=== PATIENT | male | born 1965 | race Caucasian/White ===

== ENCOUNTER 2018-12-15 11:00 | Inpatient (IN) | payer OTHER ==
--- NOTE | 2018-12-15 13:48 | HP ---
CIWA Score Nausea/Vomitin Muscle Tremors: 3 Anxiety: 2 Agitation: 2 Paroxysmal Sweats: 1-Minimal Palms Moist Orientation: 0-Oriented Tacttile Disturbances: 1-Very Mild Itch/Numbness Auditory Disturbances: 1-Very Mild Visual Disturbances: 0-None Headache: 2-Mild CIWA-Ar Total Score: 15 - Admission Criteria OASAS Guidelines: Admission for Medically Managed Detox: Requires at least one of the followin. CIWA greater than 12 2. Seizures within the past 24 hours 3. Delirium tremens within the past 24 hours 4. Hallucinations within the past 24 hours 5. Acute intervention needed for co occurring medical disorder 6. Acute intervention needed for co occurring psychiatric disorder 7. Severe withdrawal that cannot be handled at a lower level of care (continued vomiting, continued diarrhea, abnormal vital signs) requiring intravenous medication and/or fluids 8. Patient presents the following: CIWA greater than 12 Admission Criteria Met: Admission criteria met Admission ROS BHS - HPI Chief Complaint: i need help to stop drinking alcohol Allergies/Adverse Reactions: Allergies Allergy/AdvReac Type Severity Reaction Status Date / Time No Known Allergies Allergy Verified 12/15/18 13:37 History of Present Illness: this 53 years old male with alcohol dependence,seeking detox,withdrawal symptom, need help to stop drinking, history of syncope hiv since 1997 nicotine dependence 1 pack /day weight loss depression no significant period of sobriety last detox 1989 at [facility] plan for out patient program after detox Exam Limitations: No Limitations - Ebola screening Have you traveled outside of the country in the last 21 days: No Have you had contact with anyone from an Ebola affected area: No Have you been sick,other than usual withdrawal symptoms: No - Review of Systems Constitutional: Loss of Appetite, Malaise, Night Sweats, Changes in sleep, Weakness, Unintentional Wgt. Loss EENT: reports: Nose Congestion Respiratory: reports: No Symptoms reported Cardiac: reports: No Symptoms Reported GI: reports: Nausea, Poor Appetite, Indigestion, Abdominal cramping : reports: No Symptoms Reported Musculoskeletal: reports: Back Pain, Muscle Pain Integumentary: reports: Dryness Neuro: reports: Headache, Tremors, Other (history of craniotomy post tauama in 1997) Endocrine: reports: No Symptoms Reported Hematology: reports: No Symptoms Reported, Other (hiv) Psychiatric: reports: No Sypmtoms Reported, Judgement Intact, Mood/Affect Appropiate, Orientated x3, Depressed Other Systems: Reviewed and Negative Patient History - Patient Medical History Hx Anemia: No Hx Asthma: No Hx Chronic Obstructive Pulmonary Disease (COPD): No Hx Cancer: No Hx Cardiac Disorders: No Hx Congestive Heart Failure: No Hx Hypertension: No Hx Hypercholesterolemia: No Hx Pacemaker: No HX Cerebrovascular Accident: No Hx Seizures: No Hx Dementia: No Hx Diabetes: No Hx Gastrointestinal Disorders: No Hx Liver Disease: No Hx Genitourinary Disorders: No Hx Sexually Transmitted Disorders: No Hx Renal Disease (ESRD): No Hx Thyroid Disease: No Hx Human Immunodeficiency Virus (HIV): Yes (since 1997) Hx Hepatitis C: No Hx Depression: Yes (no med) Hx Suicide Attempt: No Hx Bipolar Disorder: No Hx Schizophrenia: No Other Medical History: no suicidal,no homicidal - Patient Surgical History Past Surgical History: Yes Hx Neurologic Surgery: Yes (craniotomy in 1997 post trauma) - PPD History Previous Implant?: Yes Documented Results: Negative w/o proof Implanted On Prior R Admission?: No PPD to be Administered?: Yes - Smoking Cessation Smoking history: Current every day smoker Have you smoked in the past 12 months: Yes Aproximately how many cigarettes per day: 20 Cigars Per Day: 0 Hx Chewing Tobacco Use: No Initiated information on smoking cessation: Yes 'Breaking Loose' booklet given: 12/15/18 - Substance & Tx. History Hx Alcohol Use: Yes Hx Substance Use: No Substance Use Type: Alcohol Hx Substance Use Treatment: Yes ([address] [place] [address]) - Substances Abused Alcohol-beer/scotch Route: Oral Frequency: Daily Amount used: 1 case/1-2 pts. Age of first use: 11 Date of Last Use: 12/15/18 Family Disease History - Family Disease History Family Disease History: Other: Grandparent (alcohol), Father (alcohol) Admission Physical Exam BHS - Vital Signs Vital Signs: Vital Signs - 24 hr 12/15/18 13:21 Temperature 97.2 F L Pulse Rate 128 H Respiratory 20 Rate Blood Pressure 132/104 H - Physical General Appearance: Yes: Moderate Distress, Intoxicated, Tremorous, Irritable, Anxious HEENTM: Yes: Normal ENT Inspection, KRISTIN, Pharynx Normal Respiratory: Yes: Lungs Clear, Normal Breath Sounds, No Respiratory Distress Neck: Yes: Within Normal Limits, Supple, Trachea in good position Breast: Yes: Within Normal Limits Cardiology: Yes: Within Normal Limits, Regular Rhythm, Regular Rate, S1, S2 Abdominal: Yes: Within Normal Limits, Normal Bowel Sounds, Non Tender, Soft Genitourinary: Yes: Within Normal Limits Back: Yes: Muscle Spasm Musculoskeletal: Yes: full range of Motion, Back pain, Muscle Pain Extremities: Yes: Within Normal Limits, Normal Range of Motion, Tremors Neurological: Yes: research physicist II-XII NML intact, Fully Oriented, Alert, Motor Strength 5/5 Integumentary: Yes: Dry Lymphatic: Yes: Within Normal Limits - Diagnostic (1) Alcohol dependence with uncomplicated withdrawal Current Visit: Yes Status: Acute (2) Alcohol dependence with uncomplicated intoxication Current Visit: Yes Status: Acute (3) HIV (human immunodeficiency virus infection) Current Visit: Yes Status: Acute (4) Weight loss Current Visit: Yes Status: Acute (5) History of craniotomy Current Visit: Yes Status: Acute (6) History of head injury Current Visit: Yes Status: Acute (7) Nicotine dependence Current Visit: Yes Status: Acute (8) Depression Current Visit: Yes Status: Acute Cleared for Admission [facility] - Detox or Rehab [facility] Level of Care: Medically Managed Detox Regimen/Protocol: Librium [facility] Breath Alcohol Content Breath Alcohol Content: 0.174 Urine Drug Screen - Results Drug Screen Negative: No Urine Drug Screen Results: THC-Marijuana Inpatient Rehab Admission - Rehab Decision to Admit Inpatient rehab admission?: No
[2018-12-15] MEDS ORDERED: MAGNESIUM CITRATE 300 ML BOTTLE PO PRN (13:59)
[2018-12-15] MEDS ORDERED: guaiFENesin/D-METHORPHAN HB 10 ML UNIT-DOSE CUPS PO PRN (13:59)
[2018-12-15] MEDS ORDERED: chlordiazePOXIDE HCL 25 MG CAPSULE PO PRN (13:59)
[2018-12-15] MEDS ORDERED: MENTHOL/PHENOL 1 EACH UD MM PRN (13:59)
[2018-12-15] MEDS ORDERED: IBUPROFEN 400 MG TABLET (FP) PO PRN (13:59)
[2018-12-15] MEDS ORDERED: MAG HYDROX/AL HYDROX/SIMETH 30 ML UNIT-DOSE CUP PO PRN (13:59)
[2018-12-15] MEDS ORDERED: MAGNESIUM HYDROX 2400MG/30ML ORAL SUSPENSION 30 ML CUP PO PRN (13:59)
[2018-12-15] MEDS ORDERED: P-EPHED 60MG/TRIPROLIDI 2.5MG TABLET PO PRN (13:59)
[2018-12-15] MEDS ORDERED: ACETAMINOPHEN 325 MG TABLET (FP) PO PRN (13:59)
[2018-12-15] MEDS: hydrOXYzine PAMOATE 50 MG CAPSULE (FP) PO PRN ×2 (15:29→22:10)
[2018-12-15] MEDS: NICOTINE 21 MG/24 HOURS TOPICAL PATCH TD SCH (15:36)
[2018-12-15] MEDS: chlordiazePOXIDE HCL 25 MG CAPSULE PO SCH ×2 (17:33→22:09)
[2018-12-15] MEDS: LOPERAMIDE HCL 2 MG CAPSULE PO PRN (19:53)
[2018-12-15] MEDS: THIAMINE HCL 100 MG TABLET (FP) PO SCH (22:10)
[2018-12-15] MEDS: MELATONIN 5 MG TABLETS PO PRN (22:12)
[2018-12-16 01:55] LABS: URINE APPEARANCE CLEAR; URINE BILIRUBIN NEGATIVE (<2.0 mg/dL); URINE COLOR DKYELLOW; URINE GLUCOSE (UA) NEGATIVE (NEGATIVE); URINE KETONE NEGATIVE (NEGATIVE); URINE LEUK ESTERASE NEGATIVE (NEGATIVE); URINE NITRITE NEGATIVE (NEGATIVE); URINE PROTEIN 1+ (NEGATIVE)
[2018-12-16 02:12] LABS: CALCIUM OXALATE CRYSTALS FEW /hpf (NONE SEEN); URINE BACTERIA RARE /hpf (NONE SEEN); URINE MUCUS RARE
[2018-12-16] MEDS: chlordiazePOXIDE HCL 25 MG CAPSULE PO SCH ×4 (04:25→22:29)
--- NOTE | 2018-12-16 10:00 | EKG ---
Test Reason : Blood Pressure : / mmHG Vent. Rate : 133 BPM Atrial Rate : 133 BPM P-R Int : 142 ms QRS Dur : 078 ms QT Int : 294 ms P-R-T Axes : 063 074 063 degrees QTc Int : 437 ms SINUS TACHYCARDIA OTHERWISE NORMAL ECG NO PREVIOUS ECGS AVAILABLE Confirmed by JULIETTE CUELLAR, YARA ([id number]) on 12/16/2018 9:59:55 AM Referred By: Confirmed By:YARA SEGOVIA MD
[2018-12-16 10:03] LABS: HEMATOCRIT 43.2 % (35.4-49); HEMOGLOBIN 15.1 GM/dL (11.7-16.9); MCH 31.8 pg (25.7-33.7); MCHC 34.9 g/dl (32.0-35.9); MEAN CELL VOLUME 91.2 fl (80-96); MEAN PLT VOLUME 10.3 fl (7.5-11.1); PLATELET COUNT 89 K/MM3 (134-434); RBC 4.73 M/mm3 (4.00-5.60); RDW 14.5 % (11.9-15.9); WHITE BLOOD COUNT 9.7 K/mm3 (4.0-10.0)
[2018-12-16 10:08] LABS: ALBUMIN 4.2 g/dl (3.4-5.0); ALK PHOS 104 U/L (45-117); ANION GAP 11 MMOL/L (8-16); BILIRUBIN,TOTAL 0.8 mg/dL (0.2-1); BLOOD UREA NITROGEN 12 mg/dL (7-18); CALCIUM 8.4 mg/dL (8.5-10.1); CHLORIDE 102 mmol/L (98-107); CO2 24 mmol/L (21-32); CREATININE 0.7 mg/dL (0.55-1.3); GLUCOSE,RANDOM 88 mg/dL (74-106); POTASSIUM 3.7 mmol/L (3.5-5.1); SGOT/AST 50 U/L (15-37); SGPT/ALT 30 U/L (13-61); SODIUM 137 mmol/L (136-145); TOT PROT 8.6 g/dl (6.4-8.2)
[2018-12-16] MEDS: ABACAVIR/DOLUTEGRAVIR/LAMIVUDI (TRIUMEQ) TABLET -NF PO SCH (10:29)
[2018-12-16] MEDS: PRENATAL VITAMINS W/ FOLIC ACID TABLET (FP) PO SCH (10:29)
[2018-12-16] MEDS: NICOTINE 21 MG/24 HOURS TOPICAL PATCH TD SCH (10:29)
--- NOTE | 2018-12-16 16:18 | PN ---
S CIWA - CIWA Score Nausea/Vomitin-Mild Nausea/No Vomiting Muscle Tremors: 2 Anxiety: 2 Agitation: 1-Slight > Activity Paroxysmal Sweats: 1-Minimal Palms Moist Orientation: 1-Uncertain about Date Tacttile Disturbances: 0-None Auditory Disturbances: 0-None Visual Disturbances: 0-None Headache: 2-Mild CIWA-Ar Total Score: 10 BHS Progress Note (SOAP) Subjective: tremor sweating low energy trouble concentrating irritable Objective: 12/16/18 16:20 Vital Signs Temperature 98.8 F 12/16/18 09:21 Pulse Rate 90 12/16/18 15:30 Respiratory Rate 18 12/16/18 15:30 Blood Pressure 113/74 12/16/18 09:21 O2 Sat by Pulse Oximetry (%) Laboratory Last Values WBC 9.7 K/mm3 (4.0-10.0) 12/16/18 05:45 RBC 4.73 M/mm3 (4.00-5.60) 12/16/18 05:45 Hgb 15.1 GM/dL (11.7-16.9) 12/16/18 05:45 Hct 43.2 % (35.4-49) 12/16/18 05:45 MCV 91.2 fl (80-96) 12/16/18 05:45 MCH 31.8 pg (25.7-33.7) 12/16/18 05:45 MCHC 34.9 g/dl (32.0-35.9) 12/16/18 05:45 RDW 14.5 % (11.9-15.9) 12/16/18 05:45 Plt Count 89 K/MM3 (134-434) L 12/16/18 05:45 MPV 10.3 fl (7.5-11.1) 12/16/18 05:45 Sodium 137 mmol/L (136-145) 12/16/18 05:45 Potassium 3.7 mmol/L (3.5-5.1) 12/16/18 05:45 Chloride 102 mmol/L (98-107) 12/16/18 05:45 Carbon Dioxide 24 mmol/L (21-32) 12/16/18 05:45 Anion Gap 11 MMOL/L (8-16) 12/16/18 05:45 BUN 12 mg/dL (7-18) 12/16/18 05:45 Creatinine 0.7 mg/dL (0.55-1.3) 12/16/18 05:45 Creat Clearance w eGFR > 60 (>60) 12/16/18 05:45 Random Glucose 88 mg/dL (74-106) 12/16/18 05:45 Calcium 8.4 mg/dL (8.5-10.1) L 12/16/18 05:45 Total Bilirubin 0.8 mg/dL (0.2-1) 12/16/18 05:45 AST 50 U/L (15-37) H 12/16/18 05:45 ALT 30 U/L (13-61) 12/16/18 05:45 Alkaline Phosphatase 104 U/L (45-117) 12/16/18 05:45 Total Protein 8.6 g/dl (6.4-8.2) H 12/16/18 05:45 Albumin 4.2 g/dl (3.4-5.0) 12/16/18 05:45 Urine Color Dkyellow 12/15/18 23:18 Urine Appearance Clear 12/15/18 23:18 Urine pH 6.0 (5.0-8.0) 12/15/18 23:18 Ur Specific [place] 1.020 (1.010-1.035) 12/15/18 23:18 Urine Protein 1+ (NEGATIVE) H 12/15/18 23:18 Urine Glucose (UA) Negative (NEGATIVE) 12/15/18 23:18 Urine Ketones Negative (NEGATIVE) 12/15/18 23:18 Urine Blood Negative (NEGATIVE) 12/15/18 23:18 Urine Nitrite Negative (NEGATIVE) 12/15/18 23:18 Urine Bilirubin Negative (<2.0 mg/dL) 12/15/18 23:18 Urine Urobilinogen 2.0 mg/dL (0.2-1.0) 12/15/18 23:18 Ur Leukocyte Esterase Negative (NEGATIVE) 12/15/18 23:18 Urine WBC (Auto) 1 /hpf (3-5) 12/15/18 23:18 Urine RBC (Auto) 5 /hpf (0-3) 12/15/18 23:18 Calcium Oxalate Crystal Few /hpf (NONE SEEN) 12/15/18 23:18 Urine Bacteria Rare /hpf (NONE SEEN) 12/15/18 23:18 Urine Mucus Rare 12/15/18 23:18 RPR Titer Nonreactive (NONREACTIVE) 12/16/18 05:45 lab noted low platelet discontinue motrin Assessment: 12/16/18 16:21 withdrawal sx Plan: continue detox
[2018-12-16] MEDS: LOPERAMIDE HCL 2 MG CAPSULE PO PRN (22:29)
[2018-12-16] MEDS: THIAMINE HCL 100 MG TABLET (FP) PO SCH (22:29)
[2018-12-16] MEDS: MELATONIN 5 MG TABLETS PO PRN (22:30)
[2018-12-17] MEDS: chlordiazePOXIDE HCL 25 MG CAPSULE PO SCH ×2 (05:33→10:25)
[2018-12-17] MEDS: NICOTINE 21 MG/24 HOURS TOPICAL PATCH TD SCH (10:23)
[2018-12-17] MEDS: ABACAVIR/DOLUTEGRAVIR/LAMIVUDI (TRIUMEQ) TABLET -NF PO SCH (10:25)
[2018-12-17] MEDS ORDERED: NICOTINE 14 MG/24 HOURS TOPICAL PATCH TD SCH (10:25)
[2018-12-17] MEDS: PRENATAL VITAMINS W/ FOLIC ACID TABLET (FP) PO SCH (10:25)
--- NOTE | 2018-12-17 13:05 | PN ---
S CIWA - CIWA Score Nausea/Vomitin-Mild Nausea/No Vomiting Muscle Tremors: 2 Anxiety: 1-Mildly Anxious Agitation: 1-Slight > Activity Paroxysmal Sweats: 1-Minimal Palms Moist Orientation: 0-Oriented Tacttile Disturbances: 0-None Auditory Disturbances: 1-Very Mild Visual Disturbances: 0-None Headache: 1-Very Mild CIWA-Ar Total Score: 8 BHS Progress Note (SOAP) Subjective: reported nicotine patch 21 mg is too strong change to 14 mg discuss cigarette smoking cessation tremor sweating otherwise doing ok Objective: 12/17/18 13:02 Vital Signs Temperature 98.1 F 12/17/18 09:19 Pulse Rate 112 H 12/17/18 09:19 Respiratory Rate 18 12/17/18 09:19 Blood Pressure 129/80 12/17/18 09:19 O2 Sat by Pulse Oximetry (%) Laboratory Last Values WBC 9.7 K/mm3 (4.0-10.0) 12/16/18 05:45 RBC 4.73 M/mm3 (4.00-5.60) 12/16/18 05:45 Hgb 15.1 GM/dL (11.7-16.9) 12/16/18 05:45 Hct 43.2 % (35.4-49) 12/16/18 05:45 MCV 91.2 fl (80-96) 12/16/18 05:45 MCH 31.8 pg (25.7-33.7) 12/16/18 05:45 MCHC 34.9 g/dl (32.0-35.9) 12/16/18 05:45 RDW 14.5 % (11.9-15.9) 12/16/18 05:45 Plt Count 89 K/MM3 (134-434) L 12/16/18 05:45 MPV 10.3 fl (7.5-11.1) 12/16/18 05:45 Sodium 137 mmol/L (136-145) 12/16/18 05:45 Potassium 3.7 mmol/L (3.5-5.1) 12/16/18 05:45 Chloride 102 mmol/L (98-107) 12/16/18 05:45 Carbon Dioxide 24 mmol/L (21-32) 12/16/18 05:45 Anion Gap 11 MMOL/L (8-16) 12/16/18 05:45 BUN 12 mg/dL (7-18) 12/16/18 05:45 Creatinine 0.7 mg/dL (0.55-1.3) 12/16/18 05:45 Creat Clearance w eGFR > 60 (>60) 12/16/18 05:45 Random Glucose 88 mg/dL (74-106) 12/16/18 05:45 Calcium 8.4 mg/dL (8.5-10.1) L 12/16/18 05:45 Total Bilirubin 0.8 mg/dL (0.2-1) 12/16/18 05:45 AST 50 U/L (15-37) H 12/16/18 05:45 ALT 30 U/L (13-61) 12/16/18 05:45 Alkaline Phosphatase 104 U/L (45-117) 12/16/18 05:45 Total Protein 8.6 g/dl (6.4-8.2) H 12/16/18 05:45 Albumin 4.2 g/dl (3.4-5.0) 12/16/18 05:45 Urine Color Dkyellow 12/15/18 23:18 Urine Appearance Clear 12/15/18 23:18 Urine pH 6.0 (5.0-8.0) 12/15/18 23:18 Ur Specific [place] 1.020 (1.010-1.035) 12/15/18 23:18 Urine Protein 1+ (NEGATIVE) H 12/15/18 23:18 Urine Glucose (UA) Negative (NEGATIVE) 12/15/18 23:18 Urine Ketones Negative (NEGATIVE) 12/15/18 23:18 Urine Blood Negative (NEGATIVE) 12/15/18 23:18 Urine Nitrite Negative (NEGATIVE) 12/15/18 23:18 Urine Bilirubin Negative (<2.0 mg/dL) 12/15/18 23:18 Urine Urobilinogen 2.0 mg/dL (0.2-1.0) 12/15/18 23:18 Ur Leukocyte Esterase Negative (NEGATIVE) 12/15/18 23:18 Urine WBC (Auto) 1 /hpf (3-5) 12/15/18 23:18 Urine RBC (Auto) 5 /hpf (0-3) 12/15/18 23:18 Calcium Oxalate Crystal Few /hpf (NONE SEEN) 12/15/18 23:18 Urine Bacteria Rare /hpf (NONE SEEN) 12/15/18 23:18 Urine Mucus Rare 12/15/18 23:18 RPR Titer Nonreactive (NONREACTIVE) 12/16/18 05:45 low platelet lab noted discontinue motrin Assessment: 12/17/18 13:05 alcohol withdrawal sx Plan: continue detox
[2018-12-17] MEDS: chlordiazePOXIDE 5 MG CAPSULE PO SCH ×2 (17:21→22:01)
[2018-12-17] MEDS: MELATONIN 5 MG TABLETS PO PRN (22:01)
[2018-12-17] MEDS: THIAMINE HCL 100 MG TABLET (FP) PO SCH (22:01)
[2018-12-18] MEDS: chlordiazePOXIDE 5 MG CAPSULE PO SCH ×2 (05:56→10:16)
[2018-12-18 09:51] VITALS: BP 105/77; PULSE 104; TEMP 98.1
[2018-12-18] MEDS: ABACAVIR/DOLUTEGRAVIR/LAMIVUDI (TRIUMEQ) TABLET -NF PO SCH (10:15)
[2018-12-18] MEDS: PRENATAL VITAMINS W/ FOLIC ACID TABLET (FP) PO SCH (10:15)
[2018-12-18] MEDS ORDERED: chlordiazePOXIDE HCL 10 MG CAPSULE PO SCH (17:00)
--- NOTE | 2018-12-18 19:30 | PN ---
BHS Progress Note (SOAP) Subjective: Patient denies current Withdrawal / Detox symptoms and reports that he feels well overall. Objective: PATIENT A & O X 3, OBSERVED AMBULATING ON UNIT. IN NO ACUTE DISTRESS. 12/18/18 19:28 Vital Signs Temperature 98.1 F 12/18/18 09:24 Pulse Rate 104 H 12/18/18 09:24 Respiratory Rate 18 12/18/18 09:24 Blood Pressure 105/77 12/18/18 09:24 O2 Sat by Pulse Oximetry (%) Laboratory Tests 12/15/18 12/16/18 12/16/18 23:18 05:45 05:45 WBC 9.7 RBC 4.73 Hgb 15.1 Hct 43.2 MCV 91.2 MCH 31.8 MCHC 34.9 RDW 14.5 Plt Count 89 L MPV 10.3 Sodium 137 Potassium 3.7 Chloride 102 Carbon Dioxide 24 Anion Gap 11 BUN 12 Creatinine 0.7 Creat Clearance w eGFR > 60 Random Glucose 88 Calcium 8.4 L Total Bilirubin 0.8 AST 50 H ALT 30 Alkaline Phosphatase 104 Total Protein 8.6 H Albumin 4.2 Urine Color Dkyellow Urine Appearance Clear Urine pH 6.0 Ur Specific [place] 1.020 Urine Protein 1+ H Urine Glucose (UA) Negative Urine Ketones Negative Urine Blood Negative Urine Nitrite Negative Urine Bilirubin Negative Urine Urobilinogen 2.0 Ur Leukocyte Esterase Negative Urine WBC (Auto) 1 Urine RBC (Auto) 5 Calcium Oxalate Crystal Few Urine Bacteria Rare Urine Mucus Rare RPR Titer 12/16/18 05:45 WBC RBC Hgb Hct MCV MCH MCHC RDW Plt Count MPV Sodium Potassium Chloride Carbon Dioxide Anion Gap BUN Creatinine Creat Clearance w eGFR Random Glucose Calcium Total Bilirubin AST ALT Alkaline Phosphatase Total Protein Albumin Urine Color Urine Appearance Urine pH Ur Specific [place] Urine Protein Urine Glucose (UA) Urine Ketones Urine Blood Urine Nitrite Urine Bilirubin Urine Urobilinogen Ur Leukocyte Esterase Urine WBC (Auto) Urine RBC (Auto) Calcium Oxalate Crystal Urine Bacteria Urine Mucus RPR Titer Nonreactive LABS NOTED. Assessment: 12/18/18 19:28 COMPLETION OF DETOX REGIMEN. Plan: PATIENT DENIES CURRENT WITHDRAWAL / DETOX SYMPTOMS AND REPORTS THAT HE FEELS WELL OVERALL AT THIS TIME, PATIENT GRANTED EARLY DISCHARGE FROM DETOX UNIT.
--- NOTE | 2018-12-18 19:36 | DS ---
[facility] Detox Discharge Summary Admission Date: 12/15/18 Discharge Date: 12/18/18 - History Present History: Alcohol Dependence Additional Comments: PATIENT DENIES CURRENT DETOX / WITHDRAWAL SYMPTOMS AND REPORTS THAT HE FEELS WELL OVERALL A TIME OF DISCHARGE FROM DETOX UNIT. PATIENT REPORTS THAT HE WILL ATTEND LOCAL 12-STEP / AA OUTPATIENT SUPPORT GROUPS FOR AFTERCARE. PATIENT ADVISED TO FOLLOW-UP WITH PRACTICE PERFORMANCE MANAGER FOR LOW PLATELET LEVEL NOTED ON DETOX ADMISSION LABS WHEN POSSIBLE AFTER DISCHARGE FORM DETOX UNIT. PATIENT VERBALIZED UNDERSTANDING OF RECOMMENDATION. PATIENT WAS DISCHARGED FROM DETOX UNIT IN STABLE MEDICAL CONDITION. Pertinent Past History: H.I.V., History Of Depression, History of Head Injury, History of Craniotomy, Weight Loss. - Physical Exam Results Vital Signs: Vital Signs Temperature 98.1 F 12/18/18 09:24 Pulse Rate 104 H 12/18/18 09:24 Respiratory Rate 18 12/18/18 09:24 Blood Pressure 105/77 12/18/18 09:24 O2 Sat by Pulse Oximetry (%) Pertinent Admission Physical Exam Findings: WITHDRAWAL SYMPTOMS. Laboratory Tests 12/15/18 12/16/18 12/16/18 23:18 05:45 05:45 WBC 9.7 RBC 4.73 Hgb 15.1 Hct 43.2 MCV 91.2 MCH 31.8 MCHC 34.9 RDW 14.5 Plt Count 89 L MPV 10.3 Sodium 137 Potassium 3.7 Chloride 102 Carbon Dioxide 24 Anion Gap 11 BUN 12 Creatinine 0.7 Creat Clearance w eGFR > 60 Random Glucose 88 Calcium 8.4 L Total Bilirubin 0.8 AST 50 H ALT 30 Alkaline Phosphatase 104 Total Protein 8.6 H Albumin 4.2 Urine Color Dkyellow Urine Appearance Clear Urine pH 6.0 Ur Specific [place] 1.020 Urine Protein 1+ H Urine Glucose (UA) Negative Urine Ketones Negative Urine Blood Negative Urine Nitrite Negative Urine Bilirubin Negative Urine Urobilinogen 2.0 Ur Leukocyte Esterase Negative Urine WBC (Auto) 1 Urine RBC (Auto) 5 Calcium Oxalate Crystal Few Urine Bacteria Rare Urine Mucus Rare RPR Titer 12/16/18 05:45 WBC RBC Hgb Hct MCV MCH MCHC RDW Plt Count MPV Sodium Potassium Chloride Carbon Dioxide Anion Gap BUN Creatinine Creat Clearance w eGFR Random Glucose Calcium Total Bilirubin AST ALT Alkaline Phosphatase Total Protein Albumin Urine Color Urine Appearance Urine pH Ur Specific [place] Urine Protein Urine Glucose (UA) Urine Ketones Urine Blood Urine Nitrite Urine Bilirubin Urine Urobilinogen Ur Leukocyte Esterase Urine WBC (Auto) Urine RBC (Auto) Calcium Oxalate Crystal Urine Bacteria Urine Mucus RPR Titer Nonreactive LABS NOTED. - Treatment Hospital Course: Detox Protocol Followed, Detoxed Safely, Responded well, Discharged Condition Good Patient has Accepted a Rehab Referral to: PATIENT WILL ATTEND LOCAL 12-STEP/[facility] OUTPATIENT SUPPORT GROUPS. - Medication Discharge Medications: Ambulatory Orders Abacavir/Dolutegravir/Lamivudi [Triumeq Tablet] 1 each PO DAILY 12/15/18 - Diagnosis (1) Alcohol dependence with uncomplicated intoxication Status: Acute (2) Alcohol dependence with uncomplicated withdrawal Status: Acute (3) Depression Status: Acute Qualifiers: Depression Type: unspecified Qualified Code(s): F32.9 - Major depressive disorder, single episode, unspecified (4) HIV (human immunodeficiency virus infection) Status: Acute Qualifiers: HIV symptom status: unspecified Qualified Code(s): B20 - Human immunodeficiency virus [HIV] disease (5) History of craniotomy Status: Acute (6) History of head injury Status: Chronic (7) Nicotine dependence Status: Acute Qualifiers: Nicotine product type: cigarettes Substance use status: uncomplicated Qualified Code(s): F17.210 - Nicotine dependence, cigarettes, uncomplicated (8) Weight loss Status: Acute - AMA Did Patient Leave Against Medical Advice: No
== END 2018-12-18 12:38 | disposition home or self-care (01) | DRG 897 ==
LOC: YASAS 11:00 → Y3N 14:12
PROVIDERS: ADMIT Surgery; ATTEND Surgery
PROC: HZ2ZZZZ Detoxification Services for Substance Abuse Treatment (ICD-10-PCS; principal; 2018-12-15)
DX: F10.230 Alcohol dependence with withdrawal, uncomplicated (principal); F17.210 Nicotine dependence, cigarettes, uncomplicated; F32.9 Major depressive disorder, single episode, unspecified; Z21 Asymptomatic human immunodeficiency virus [HIV] infection status; R63.4 Abnormal weight loss; Z68.20 Body mass index [BMI] 20.0-20.9, adult; Z87.820 Personal history of traumatic brain injury; Z98.890 Other specified postprocedural states; Z59.0 Homelessness
CPT/HCPCS: 36415; 80053; 81003; 81015; 85027; 86593; 93005; 93010